=== PATIENT | female | born 1990 | race African-American/Black ===

== ENCOUNTER 2016-03-14 18:57 | Emergency (ER) | payer SELFPAY ==
--- NOTE | 2016-03-14 19:14 | ER Document Report ---
ED Medical Screen (RME) - General Stated Complaint: SINUS PROBLEM/SKIN ISSUE Mode of Arrival: Ambulatory Information source: Patient Notes: Patient presents to the emergency department with complaints of sinus pain for the past week. She also reports eczema to her hands with skin tears. [place] fever vomiting diarrhea. I have greeted and performed a rapid initial assessment of this patient. A comprehensive ED assessment and evaluation of the patient, analysis of test results and completion of the medical decision making process will be conducted by additional ED providers. TRAVEL OUTSIDE OF THE [place] IN LAST 30 DAYS: No - Related Data Allergies/Adverse Reactions: No Known Allergies Allergy (Unverified 08/04/14 10:00) Past Medical History - Past Medical History Cardiac Medical History: Reports: Hx Pulmonary Embolism Denies: Hx Coronary Artery Disease, Hx Heart Attack, Hx Hypertension Pulmonary Medical History: Denies: Hx Asthma, Hx Bronchitis, Hx COPD, Hx Pneumonia Neurological Medical History: Denies: Hx Cerebrovascular Accident, Hx Seizures Musculoskeltal Medical History: Denies Hx Arthritis - Immunizations Immunizations up to date: No Hx Diphtheria, Pertussis, Tetanus Vaccination: Yes Physical Exam - Vital signs Vitals: Temp Pulse Resp BP Pulse Ox 97.9 F 93 14 124/67 98 03/14/16 19:06 03/14/16 19:06 03/14/16 19:06 03/14/16 19:06 03/14/16 19:06 Course - Vital Signs Vital signs: Temp Pulse Resp BP Pulse Ox 97.9 F 93 14 124/67 98 03/14/16 19:06 03/14/16 19:06 03/14/16 19:06 03/14/16 19:06 03/14/16 19:06
[2016-03-14] MEDS ORDERED: HYDROCORTISONE 1% CREAM 28.35 GM TP ONE (22:13)
--- NOTE | 2016-03-14 22:18 | ER Document Report ---
ED General - General Chief Complaint: Nasal Congestion Stated Complaint: SINUS PROBLEM/SKIN ISSUE Time seen by provider: 22:13 Mode of Arrival: Ambulatory Information source: Patient Notes: 25-year-old female presents to ED for complain of sinus congestion runny nose and eczema to her hands and fingers with small open area to her third, fourth, and fifth finger on her right hand. The right wrist and left third and fourth finger have a vesicular rash. Patient has eczema and has been out of her hydrocortisone cream for a long time. She is also using products at work for cleaning her hands that she might be allergic to. TRAVEL OUTSIDE OF THE [place] IN LAST 30 DAYS: No - HPI Onset: Other - Rashes been for 2-3 days eczema is a chronic problem, open wounds have been Friday sinus issues have been for a week Quality of pain: No pain Severity: None Pain Level: Denies Associated symptoms: Nonproductive cough, Rhinnorhea, Sinus pain/drainage, Other - The right wrist and left third and fourth finger have a vesicular rash, open area to her third, fourth, and fifth finger on her right hand Exacerbated by: Denies Relieved by: Denies Similar symptoms previously: Yes Recently seen / treated by doctor: No - Related Data Allergies/Adverse Reactions: No Known Allergies Allergy (Verified 03/14/16 19:14) Past Medical History - General Information source: Patient - Social History Smoking Status: Current Every Day Smoker Cigarette use (# per day): Yes Chew tobacco use (# tins/day): No Smoking Education Provided: Yes - less than 1 minute Frequency of alcohol use: None Drug Abuse: None Occupation: medical supervisor Lives with: Spouse/Significant other - And children Family History: Hyperlipidemia, Hypertension Patient has suicidal ideation: No Patient has homicidal ideation: No - Past Medical History Cardiac Medical History: Reports: Hx Pulmonary Embolism Pulmonary Medical History: Reports: None EENT Medical History: Reports: None Neurological Medical History: Reports: None Endocrine Medical History: Reports: None Renal/ Medical History: Reports: None Malignancy Medical History: Reports: None GI Medical History: Reports: None Musculoskeltal Medical History: Reports None Skin Medical History: Reports Hx Eczema Psychiatric Medical History: Reports: None Traumatic Medical History: Reports: None Infectious Medical History: Reports: None Past Surgical History: Reports: Hx Tubal Ligation - Immunizations Immunizations up to date: Yes Hx Diphtheria, Pertussis, Tetanus Vaccination: Yes Review of Systems - Review of Systems Constitutional: No symptoms reported EENT: Nose discharge, Sinus discharge Cardiovascular: No symptoms reported Respiratory: Cough Gastrointestinal: No symptoms reported Genitourinary: No symptoms reported Female Genitourinary: No symptoms reported Musculoskeletal: No symptoms reported Skin: Rash Hematologic/Lymphatic: No symptoms reported Neurological/Psychological: No symptoms reported -: Yes All other systems reviewed and negative Physical Exam - Vital signs Vitals: Temp Pulse Resp BP Pulse Ox 97.9 F 93 14 124/67 98 03/14/16 19:06 03/14/16 19:06 03/14/16 19:06 03/14/16 19:06 03/14/16 19:06 Interpretation: Normal - General General appearance: Appears well, Alert - HEENT Head: Normocephalic, Atraumatic Eyes: Normal Pupils: PERRL - Respiratory Respiratory status: No respiratory distress Chest status: Nontender Breath sounds: Normal Chest palpation: Normal - Cardiovascular Rhythm: Regular Heart sounds: Normal auscultation Murmur: No - Abdominal Inspection: Normal Distension: No distension Bowel sounds: Normal Tenderness: Nontender Organomegaly: No organomegaly - Back Back: Normal, Nontender - Extremities General upper extremity: Normal inspection, Nontender, Normal color, Normal ROM , Normal temperature General lower extremity: Normal inspection, Nontender, Normal color, Normal ROM , Normal temperature, Normal weight bearing. No: Gama's sign - Neurological Neuro grossly intact: Yes Cognition: Normal Orientation: AAOx4 [place] Coma Scale Eye Opening: Spontaneous [place] Coma Scale Verbal: Oriented [place] Coma Scale Motor: Obeys Commands [place] Coma Scale Total: 15 Speech: Normal Motor strength normal: LUE, RUE, LLE, RLE Sensory: Normal - Psychological Associated symptoms: Normal affect, Normal mood - Skin Skin Temperature: Warm Skin Moisture: Dry Skin Color: Normal Location of irregularity: Extremities - The right wrist and left third and fourth finger have a vesicular rash, open area to her third, fourth, and fifth finger on her right hand Character of irregularity: Vesicular, Other - open areas Course - Vital Signs Vital signs: Temp Pulse Resp BP Pulse Ox 97.9 F 93 14 124/67 98 03/14/16 19:06 03/14/16 19:06 03/14/16 19:06 03/14/16 19:06 03/14/16 19:06 Discharge - Discharge Clinical Impression: Eczema of both hands Allergic reaction Qualifiers: Encounter type: initial encounter Qualified Code(s): T78.40XA - Allergy, unspecified, initial encounter Condition: Stable Disposition: HOME, SELF-CARE Instructions: Family Physicians / Practices Additional Instructions: ACUTE ALLERGIC REACTION: Your symptoms are due to an allergic reaction. Allergy can cause hives, swelling of the hands, feet, and face, hoarseness, and difficulty swallowing or breathing. It may be due to exposure to medication, animal dander, foods, infection, or insect bites. Medication is a common cause, even when prior use of this same medication caused no problems. Acute treatment may include adrenalin and antihistamines. Usually, the specific allergic agent can't be identified unless repeated episodes occur. Home treatment includes the following: (1) Stop any suspicious medications. This will be discussed with you. (2) Oral antihistamines for the next four to five days. Example, diphenhydramine (Benadryl) every four hours. (3) You may also use cimetidine (Tagamet), ranitidine (Zantac), or famotidine ( Pepcid) every four hours if diphenhydramine is not controlling itching and hives. (4) Avoid aspirin until the hives completely disappear. (5) Avoid hot baths or showers until the hives are completely gone. Call the doctor if faintness, difficulty swallowing, tightness in the chest , or wheezing occurs. Atopic Dematitis (Eczema) You have atopic dermatitis, commonly called eczema. This is a chronic allergic skin condition. It often occurs in families with asthma and hay fever. The skin develops patches of redness, itching and scaling. Eczema often affects the back of the neck, back of the legs, and front of the arms. In children it affects the back of the knees, front of the elbows, and the cheeks. Itching is the main symptom. Eczema can be triggered by dryness, heat, sweating, and detergents or soap. Scratching makes the rash worse. Food or skin allergy can cause eczema. Emotional stress may also be a factor. Symptoms may get better or worse spontaneously. Generally, the treatment consists of: (1) avoid hot-water baths, (2) avoid using soap on your skin, (3) apply a cortisone cream as needed, and (4) use antihistamines for itching. For severe episodes, oral cortisone medication may be required. Call the doctor if you get worse despite treatment, or if signs of infection occur -- such as spreading redness, red streaks, swollen glands, swelling, or fever. STEROID MEDICATION: You have been given a medicine of the cortisone/steroid class. This medication is used to control inflammation or allergy. It is usually only given for a short period of time, until the acute process subsides. There are usually no side effects from short-term use of cortisone-like medications. Some persons feel an increased sense of well-being and are not sleepy at bedtime. Long-term use of cortisone medications is best avoided, unless required for a severe condition. If your condition does not remit, or relapses after the course of corticosteroid medication, you should consult your physician. USE OF DIPHENHYDRAMINE: The use of diphenhydramine (Benadryl) has been recommended to control allergic symptoms. The 25 mg strength is available over- the-counter, as well as the elixir. This antihistamine is used for many symptoms. It's useful for itching, watering eyes and nose, allergic swelling, hives, and insect stings. The medication can be repeated four times daily. Age Elixir (12.5 mg/tsp) 25 mg pill 2-3 yr 1/2 tsp 4-8 yr 1 tsp 9-14 yr 2 tsp one tab adult 1-2 tabs Antihistamines may cause drowsiness, especially with the first dose. Do not operate machinery or drive while under the effects of the medication. Do not combine the medication with alcohol, or with any other medication without talking to your doctor. FOLLOW-UP CARE: If you have been referred to a physician for follow-up care, call the physician s office for an appointment as you were instructed or within the next two days. If you experience worsening or a significant change in your symptoms, notify the physician immediately or return to the Emergency Department at any time for re-evaluation. Forms: Return to Work
[2016-03-14] MEDS ORDERED: HYDROCORTISONE 1% CREAM 28.35 GM ONE (22:31)
[2016-03-14 22:48] VITALS: BP 128/63
== END 2016-03-14 22:38 | disposition home or self-care (01) ==
LOC: ER 18:57
DX: L23.9 Allergic contact dermatitis, unspecified cause (principal); R09.81 Nasal congestion; R05 Cough; J34.89 Other specified disorders of nose and nasal sinuses; F17.210 Nicotine dependence, cigarettes, uncomplicated; Z71.6 Tobacco abuse counseling; Z86.711 Personal history of pulmonary embolism
CPT/HCPCS: 99283; L1830; J3490

== ENCOUNTER 2017-03-13 17:27 | Emergency (ER) | payer SELFPAY ==
[2017-03-13 17:43] VITALS: BP 116/63
== END 2017-03-13 19:30 | disposition left against medical advice (07) ==
LOC: ER 17:27
DX: Z53.21 Procedure and treatment not carried out due to patient leaving prior to being seen by health care provider (principal)

== ENCOUNTER 2019-02-24 21:48 | Emergency (ER) | payer SELFPAY ==
--- NOTE | 2019-02-24 22:42 | ER Document Report ---
ED Medical Screen (RME) - General Chief Complaint: Shortness Of Breath Stated Complaint: SHORTNESS OF BREATH,RIB PAIN,DIFFICULTY BREATHING Time Seen by Provider: 02/24/19 22:22 Notes: Patient is a 28-year-old female presents emergency department with a chief complaint of abdominal pain. Patient reports she has had upper abdominal pain for about 1 week. Patient reports that this is worse in the right upper quadrant. Patient reports this is worse after eating. Patient concerned this may be her gallbladder. Patient has had a tubal ligation. TRAVEL OUTSIDE OF THE [place] IN LAST 30 DAYS: No - Related Data Allergies/Adverse Reactions: No Known Allergies Allergy (Verified 03/14/16 19:14) Past Medical History - Social History Chew tobacco use (# tins/day): No Frequency of alcohol use: Occasional Drug Abuse: None - Past Medical History Cardiac Medical History: Reports: Hx Pulmonary Embolism Denies: Hx Coronary Artery Disease, Hx Heart Attack, Hx Hypertension Pulmonary Medical History: Denies: Hx Asthma, Hx Bronchitis, Hx COPD, Hx Pneumonia Neurological Medical History: Denies: Hx Cerebrovascular Accident, Hx Seizures Renal/ Medical History: Denies: Hx Peritoneal Dialysis Musculoskeltal Medical History: Denies Hx Arthritis Skin Medical History: Reports Hx Eczema Past Surgical History: Reports: Hx Tubal Ligation - Immunizations Immunizations up to date: Yes Hx Diphtheria, Pertussis, Tetanus Vaccination: Yes Physical Exam - Vital signs Vitals: Temp Pulse Resp BP Pulse Ox 98.4 F 91 16 128/59 H 96 02/24/19 22:05 02/24/19 22:05 02/24/19 22:05 02/24/19 22:05 02/24/19 22:05 - Abdominal Notes: Right upper quadrant tenderness noticed with palpation Course - Re-evaluation Re-evalutation: 02/24/19 22:41 I have greeted and performed a rapid initial assessment of this patient. A comp rehensive ED assessment and evaluation of the patient, analysis of test results and completion of the medical decision making process will be conducted by additional ED providers. - Vital Signs Vital signs: Temp Pulse Resp BP Pulse Ox 98.4 F 91 16 128/59 H 96 02/24/19 22:05 02/24/19 22:05 02/24/19 22:05 02/24/19 22:05 02/24/19 22:05
[2019-02-24 22:44] LABS: APPEARANCE,URINE SLIGHTLY-CLOUDY; BILIRUBIN,URINE NEGATIVE (NEGATIVE); COLOR,URINE YELLOW; GLUCOSE, URINE NEGATIVE (NEGATIVE); KETONES,URINE TRACE mg/dL (NEGATIVE); LEUKOCYTE ESTERASE,URINE SMALL (NEGATIVE); NITRITE,URINE NEGATIVE (NEGATIVE); PROTEIN,URINE 30 mg/dL (NEGATIVE); URINE SPECIFIC GRAVITY 1.031
[2019-02-24 23:14] LABS: ABSOLUTE EOSINOPHILS # (AUTO) 0.2 10^3/uL (0.0-0.6); ABSOLUTE LYMPHOCYTES (AUTO) 1.5 10^3/uL (0.5-4.7); ABSOLUTE MONOCYTES (AUTO) 0.5 10^3/uL (0.1-1.4); ABSOLUTE NEUT (AUTO) 5.2 10^3/uL (1.7-8.2); BASOPHILS % (AUTO) 0.3 % (0-2); EOSINOPHILS % (AUTO) 2.2 % (0-6); HEMATOCRIT 35.7 % (36.0-47.0); HEMOGLOBIN 11.9 g/dL (12.0-15.5); LYMPHOCYTES % (AUTO) 20.4 % (13-45); MEAN CORPUSCULAR HEMOGLOBIN 29.7 pg (27.0-33.4); MEAN CORPUSCULAR HGB CONC 33.2 g/dL (32.0-36.0); MEAN CORPUSCULAR VOLUME 89 fl (80-97); MONOCYTES % (AUTO) 6.5 % (3-13); PLATELET COUNT 262 10^3/uL (150-450); RED CELL DISTRIBUTION WIDTH 13.4 % (11.5-14.0); SEGMENTED NEUTROPHILS % (AUTO) 70.6 % (42-78); TOTAL CELLS COUNTED % (AUTO) 100 %; WHITE BLOOD COUNT 7.4 10^3/uL (4.0-10.5)
[2019-02-24 23:29] LABS: ALBUMIN 3.9 g/dL (3.5-5.0); ALKALINE PHOSPHATASE 73 U/L (38-126); ANION GAP 9 (5-19); ASPARTATE AMINO TRANSFERASE 22 U/L (14-36); BILIRUBIN,DIRECT 0.3 mg/dL (0.0-0.4); BILIRUBIN,TOTAL 0.7 mg/dL (0.2-1.3); BLOOD UREA NITROGEN 9 mg/dL (7-20); CALCIUM 9.3 mg/dL (8.4-10.2); CARBON DIOXIDE 32 mmol/L (22-30); CHLORIDE 100 mmol/L (98-107); GLUCOSE 114 mg/dL (75-110); POTASSIUM 3.6 mmol/L (3.6-5.0); TOTAL PROTEIN 7.8 g/dL (6.3-8.2)
--- NOTE | 2019-02-24 23:59 | RADIOLOGY REPORT (SQ) ---
EXAM DESCRIPTION: US ABDOMEN LIMITED COMPLETED DATE/TME: 02/24/2019 22:40 CLINICAL HISTORY: 28 years, Female, r/o gallbladder, ruq pain COMPARISON: None. TECHNIQUE: Limited right upper quadrant ultrasound LIMITATIONS: None. FINDINGS: The liver is homogenous in echotexture without focal lesion. The gallbladder is contracted. No gallstones or gallbladder wall thickening. CBD measures 1.7 mm. The visualized pancreas, abdominal aorta, inferior vena cava, right kidney unremarkable. No ascites IMPRESSION: Unremarkable exam copyright 2010 [employer]- All Rights Reserved
[2019-02-25] MEDS ORDERED: FAMOTIDINE 20 MG TABLET PO ONE (01:11)
[2019-02-25] MEDS ORDERED: SUCRALFATE 1 GM TABLET PO ONE (01:11)
[2019-02-25] MEDS ORDERED: ONDANSETRON ODT 4 MG TAB (6 TAB/ER DISP) PO PRN (01:11)
[2019-02-25] MEDS ORDERED: HYDROCODONE/ACETAMINOPHEN 5-325 MG (6 TAB/ER DISP) PO PRN (01:11)
--- NOTE | 2019-02-25 01:14 | ER Document Report ---
ED GI/ - General Chief Complaint: Shortness Of Breath Stated Complaint: SHORTNESS OF BREATH,RIB PAIN,DIFFICULTY BREATHING Time Seen by Provider: 02/24/19 22:22 Primary Care Provider: [facility] [Provider Group] - Follow up as needed Notes: Patient is a 28-year-old female that comes emergency department for chief complaint of upper abdominal pain. She states she has had this intermittently for about 1 week, at times very sharp. She states it is worse with eating. She denies vomiting, flank pain, lower abdominal pain, dysuria, vaginal bleeding or discharge, fever. Patient has had a tubal ligation, she is a former smoker, she drinks wine several days a week, she denies recreational drugs. She did have a pulmonary embolism previously when she was on oral contraceptive and smoking but she has been off of Coumadin for years now. She denies any other medical history. TRAVEL OUTSIDE OF THE [place] IN LAST 30 DAYS: No - Related Data Allergies/Adverse Reactions: No Known Allergies Allergy (Verified 03/14/16 19:14) Past Medical History - General Information source: Patient - Social History Smoking Status: Never Smoker Chew tobacco use (# tins/day): No Frequency of alcohol use: Wine 3 times a week Drug Abuse: None Lives with: Family Family History: Hyperlipidemia, Hypertension Patient has suicidal ideation: No Patient has homicidal ideation: No - Past Medical History Cardiac Medical History: Reports: Hx Pulmonary Embolism Denies: Hx Coronary Artery Disease, Hx Heart Attack, Hx Hypertension Pulmonary Medical History: Denies: Hx Asthma, Hx Bronchitis, Hx COPD, Hx Pneumonia Neurological Medical History: Denies: Hx Cerebrovascular Accident, Hx Seizures Renal/ Medical History: Denies: Hx Peritoneal Dialysis Musculoskeletal Medical History: Denies Hx Arthritis Skin Medical History: Reports Hx Eczema Past Surgical History: Reports: Hx Tubal Ligation - Immunizations Immunizations up to date: Yes Hx Diphtheria, Pertussis, Tetanus Vaccination: Yes Review of Systems - Review of Systems Constitutional: No symptoms reported EENT: No symptoms reported Cardiovascular: No symptoms reported Respiratory: No symptoms reported Gastrointestinal: See HPI Genitourinary: No symptoms reported Female Genitourinary: No symptoms reported Musculoskeletal: No symptoms reported Skin: No symptoms reported Hematologic/Lymphatic: No symptoms reported Neurological/Psychological: No symptoms reported Physical Exam - Vital signs Vitals: Temp Pulse Resp BP Pulse Ox 98.4 F 91 16 128/59 H 96 01/08/20 22:05 02/24/19 22:05 02/24/19 22:05 02/24/19 22:05 02/24/19 22:05 - Notes Notes: GENERAL: Alert, interacts well. No acute distress. HEAD: Normocephalic, atraumatic. EYES: Pupils equal, round, and reactive to light. Extraocular movements intact. ENT: Oral mucosa moist, tongue midline. Oropharynx unremarkable. Airway patent. LUNGS: Clear to auscultation bilaterally, no wheezes, rales, or rhonchi. No respiratory distress. HEART: Regular rate and rhythm. No murmur ABDOMEN: There is generalized tenderness over the upper abdomen. Mid to lower abdomen completely benign. No distention, bowel sounds present throughout, no rigidity or guarding EXTREMITIES: Moves all 4 extremities spontaneously. No edema, normal radial and dorsalis pedis pulses bilaterally. No cyanosis. BACK: no cervical, thoracic, lumbar midline tenderness. No saddle anesthesia, normal distal neurovascular exam. Moves all extremities in full range of motion. NEUROLOGICAL: Alert and oriented x3. Normal speech. Cranial nerves II through XII grossly intact. PSYCH: Normal affect, normal mood. SKIN: Warm, dry, normal turgor. No rashes or lesions noted. Course - Re-evaluation Re-evalutation: Patient has some general upper abdominal pain on exam. She is smiling, alert, well-appearing. Symptoms are worse with food and lying down when I asked additional questions. She is not vomiting, has no fever, vital signs unremarkable. CBC, chemistry, lipase, test are unremarkable. Urinalysis shows possible urinary tract infection, however patient has no lower abdominal pain, flank pain, or dysuria. I offered antibiotics but she declined, culture placed. Ultrasound of the upper abdomen shows no concerning findings. Discussed with patient. Most likely either gallbladder dyskinesis or upper ga strointestinal inflammation, she will be treated for the latter with recommendations for testing for the former. I discussed this at length with patient. Discussed return precautions. Patient states appreciation and agreement. She tolerated p.o. without any difficulty before discharge. - Vital Signs Vital signs: Temp Pulse Resp BP Pulse Ox 98.1 F 90 14 119/70 100 02/25/19 01:31 02/25/19 01:31 02/25/19 01:31 02/25/19 01:31 02/25/19 01:31 - Laboratory Result Diagrams: 02/24/19 23:00 02/24/19 23:00 Laboratory results interpreted by me: 02/24/19 02/24/19 02/24/19 22:20 23:00 23:00 Hgb 11.9 L Hct 35.7 L Carbon Dioxide 32 H Glucose 114 H Urine Protein 30 H Urine Ketones TRACE H Urine Urobilinogen 4.0 H Ur Leukocyte Esterase SMALL H Urine Ascorbic Acid 40 H Discharge - Discharge Clinical Impression: Upper abdominal pain Condition: Stable Disposition: HOME, SELF-CARE Additional Instructions: Your work-up including the ultrasound appears normal. As result I suspect this is either from inflammation of the upper gastrointestinal tract or gallbladder d yskinesis as we discussed. Take Phenergan for nausea, take Carafate and Pepcid as prescribed to help treat this, you can take additional Rolaids, Tums, Maalox, etc. if needed. You can take Tylenol for pain. Avoid NSAIDs, alcohol, smoking, caffeine, spicy food. Start with clear fluids, progress to bland diet. Follow-up with primary care for additional evaluation and treatment including possible HIDA scan or H. pylori testing. Return if you worsen including uncontrolled vomiting, vomiting blood, black stools, severe pain, fever of 100.4 or greater, or any other concerning or worsening symptoms. Prescriptions: Sucralfate [Carafate 1 gm Tablet] 1 gm PO QID #20 tablet Famotidine [Pepcid 20 mg Tablet] 20 mg PO BID #14 tablet Promethazine HCl [Phenergan 25 mg Tablet] 25 mg PO Q6H PRN #15 tablet PRN Reason: Forms: Return to Work Referrals: [facility] [Provider Group] - Follow up as needed
[2019-02-25 01:32] VITALS: BP 119/70
--- NOTE | 2019-02-25 09:36 | EKG REPORT ---
SEVERITY:- NORMAL ECG - SINUS RHYTHM : Confirmed by: Werner Lucio 25-Feb-2019 09:35:38
== END 2019-02-25 01:32 | disposition home or self-care (01) ==
LOC: ER 21:48
DX: R10.10 Upper abdominal pain, unspecified (principal); R06.02 Shortness of breath; R07.81 Pleurodynia; Z87.891 Personal history of nicotine dependence; Z86.711 Personal history of pulmonary embolism
CPT/HCPCS: 36415; 76705; 80053; 81001; 81025; 83690; 85025; 87086; 93005; 93010; 99284

== ENCOUNTER 2020-03-06 17:51 | Emergency (ER) | payer OTHER, BC ==
[2020-03-06 18:21] VITALS: BP 129/74
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
[2020-03-06] MEDS ORDERED: NORMAL SALINE 1000 ML 1,000 ML IV ONE (19:09)
[2020-03-06] MEDS ORDERED: ONDANSETRON HCL INJ/PF 4 MG/2 ML SDV IV ONE (19:09)
[2020-03-06] MEDS ORDERED: MORPHINE SULFATE 10 MG/ML INJ IV ONE (19:09)
[2020-03-06 19:32] LABS: ABSOLUTE BASOPHILS # (AUTO) 0.1 10^3/uL (0.0-0.2); ABSOLUTE EOSINOPHILS # (AUTO) 0.2 10^3/uL (0.0-0.6); ABSOLUTE LYMPHOCYTES (AUTO) 2.9 10^3/uL (0.5-4.7); ABSOLUTE MONOCYTES (AUTO) 0.3 10^3/uL (0.1-1.4); ABSOLUTE NEUT (AUTO) 3.1 10^3/uL (1.7-8.2); BASOPHILS % (AUTO) 0.8 % (0-2); EOSINOPHILS % (AUTO) 3.6 % (0-6); HEMATOCRIT 41.4 % (36.0-47.0); HEMOGLOBIN 13.9 g/dL (12.0-15.5); LYMPHOCYTES % (AUTO) 44.4 % (13-45); MEAN CORPUSCULAR HEMOGLOBIN 29.9 pg (27.0-33.4); MEAN CORPUSCULAR HGB CONC 33.4 g/dL (32.0-36.0); MEAN CORPUSCULAR VOLUME 89 fl (80-97); MONOCYTES % (AUTO) 4.8 % (3-13); PLATELET COUNT 259 10^3/uL (150-450); RED BLOOD COUNT 4.63 10^6/uL (3.72-5.28); RED CELL DISTRIBUTION WIDTH 13.3 % (11.5-14.0); SEGMENTED NEUTROPHILS % (AUTO) 46.4 % (42-78); TOTAL CELLS COUNTED % (AUTO) 100 %; WHITE BLOOD COUNT 6.6 10^3/uL (4.0-10.5)
[2020-03-06 19:59] LABS: ALKALINE PHOSPHATASE 77 U/L (38-126); ASPARTATE AMINO TRANSFERASE 28 U/L (14-36); BILIRUBIN,DIRECT 0.2 mg/dL (0.0-0.4); BILIRUBIN,TOTAL 0.5 mg/dL (0.2-1.3); BLOOD UREA NITROGEN 12 mg/dL (7-20); CALCIUM 8.6 mg/dL (8.4-10.2); GLUCOSE 75 mg/dL (75-110); POTASSIUM 3.8 mmol/L (3.6-5.0); TOTAL PROTEIN 7.4 g/dL (6.3-8.2)
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
[2020-03-06 20:04] LABS: CARBON DIOXIDE 25 mmol/L (22-30); CHLORIDE 108 mmol/L (98-107)
[2020-03-06 20:06] LABS: ANION GAP 3 (5-19)
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
[2020-03-06 21:20] LABS: APPEARANCE,URINE CLEAR; BILIRUBIN,URINE NEGATIVE (NEGATIVE); COLOR,URINE YELLOW; GLUCOSE, URINE NEGATIVE (NEGATIVE); KETONES,URINE NEGATIVE (NEGATIVE); LEUKOCYTE ESTERASE,URINE NEGATIVE (NEGATIVE); NITRITE,URINE NEGATIVE (NEGATIVE); PROTEIN,URINE 30 mg/dL (NEGATIVE); URINE SPECIFIC GRAVITY 1.029; UROBILINOGEN,URINE NEGATIVE mg/dL (<2.0)
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
== END 2020-03-06 22:03 | disposition home or self-care (01) ==
LOC: ER 17:51
DX: S83.92XA Sprain of unspecified site of left knee, initial encounter (principal); S20.219A Contusion of unspecified front wall of thorax, initial encounter; S30.1XXA Contusion of abdominal wall, initial encounter; S50.12XA Contusion of left forearm, initial encounter; V43.52XA Car driver injured in collision with other type car in traffic accident, initial encounter; F17.200 Nicotine dependence, unspecified, uncomplicated; Z86.711 Personal history of pulmonary embolism; Z98.51 Tubal ligation status
CPT/HCPCS: 99285; 96361; 96374; 96375; 36415; 84703; 85025; 80053; 81001; 73090; 73130; 73564; 71260; 74177; J2270; J2405; J7030